=== PATIENT | female | born 1950 | race Caucasian/White ===

== ENCOUNTER 2016-09-12 10:00 | Inpatient (IN) ==
--- NOTE | 2016-09-11 22:19 | Discharge Summary ---
<OchoaJuan Pablo - Last Filed: 09/12/16 13:24> Date of Encounter: 09/12/16 - Discharge Diagnosis (1) Rotator cuff tear arthropathy of right shoulder Priority: Primary Status: Acute (2) AUSTIN (obstructive sleep apnea) Priority: Secondary Status: Chronic (3) Anxiety Priority: Secondary Status: Chronic (4) Gout Priority: Secondary Status: Chronic Qualifiers: Gout site: unspecified site Gout etiology: unspecified cause Chronicity: unspecified Qualified Code(s): M10.9 - Gout, unspecified (5) HLD (hyperlipidemia) Priority: Secondary Status: Chronic Qualifiers: Hyperlipidemia type: unspecified Qualified Code(s): E78.5 - Hyperlipidemia , unspecified (6) HTN (hypertension) Priority: Secondary Status: Chronic Qualifiers: Hypertension type: essential hypertension Qualified Code(s): I10 - Essential (primary) hypertension (7) Obesity Priority: Secondary Status: Chronic Qualifiers: Obesity type: unspecified obesity type Obesity severity: unspecified obesity severity Qualified Code(s): E66.9 - Obesity, unspecified (8) CKD (chronic kidney disease) Priority: Secondary Status: Chronic Qualifiers: Chronic kidney disease stage: stage 2 (mild) Qualified Code(s): - (9) Paroxysmal a-fib Priority: Secondary Status: Chronic - Discharge Medications Home Medications: Allopurinol [Zyloprim 100 MG] 100 mg PO BID 09/12/16 [History] Aspirin [Lo-Dose Aspirin EC] 81 mg PO DAILY 09/12/16 [History] Flecainide 50 mg PO Q12HR 09/12/16 [History] Metoprolol Succinate 100 mg PO DAILY 09/12/16 [History] OxyCODONE Immed Rel [Roxicodone 5 MG] 5 - 10 mg PO Q6HR PRN #40 tablet 09/12/16 [Rx] Paroxetine HCl [Paxil] 20 mg PO DAILY 09/12/16 [History] Simvastatin [Zocor] 40 mg PO HS 09/12/16 [History] Allergies/Adverse Reactions: Allergies No Known Allergies Allergy (Verified 09/12/16 10:51) Primary care physician: Lewis Lazaro Jr, MD - Patient Status Disposition: Home, Self-Care Condition: Good - Discharge Instructions Follow Up With: Kylee Gustafson PAC [Physician Wallpaper Printer Helper] - 09/22/16 1:30 pm Lewis Lazaro Jr, MD [Primary Care Provider] - Additional Instructions: Discharge Instructions: Total Shoulder Please call [facility] ([phone]), your Primary Care Physician, or report to the Emergency Room if you have any of the following symptoms: Nausea, vomiting, fever greater that 101.5, swelling, chest pain, shortness of breath, increased pain/redness/drainage/odor for your incision site, numbness/ tingling, or any other concerning symptoms. ACTIVITY: Always keep your arm in the sling. Do not raise your arm away from your body. Do not use your arm to help with getting in or out of bed. No weight bearing permitted. Only perform those exercises given to you by your therapist. MEDICATIONS: Upon discharge resume your home medications. Take all the medications as prescribed. Take a stool softener if taking narcotic pain medications. Stool softeners are only effective if you drink enough fluids. Drink 6-8 glass of water or fluids a day, unless this is not allowed for another health problem. Despite using stool softeners, if you haven't had a bowel movement in 3 days, please switch to a gentle laxative. Gentle laxatives are sold over the counter. You should have a bowel movement within 24 hours, if not call the office. You will be discharged from the hospital with a prescription for pain medication. You are encouraged to decrease the use of narcotic pain medication as tolerated. Should you require a refill, please call the office. [facility] prescribes narcotic pain medication for only 4-6 weeks after surgery. If you require pain medication beyond this time period, you may be referred to your Primary Care Physician or to the Pain Clinic for further evaluation. Plan ahead for refills on pain medication as many narcotics either need to be picked up at the office or mailed. It is best to call 48-72 hours in advance of needing a prescription refill so you don't run out of medication. To help control the post-operative pain, you may take NSAIDs (Aleve,Advil, Motrin, Ibuprofen, Naprosyn) or Tylenol as prescribed on the bottle in addition to the pain medication. WOUND CARE: Leave the dressing on for 7-10 days. You may change the dressing if it becomes saturated greater than 50%. Do not get the dressing wet at anytime. Wash your hands with antibacterial soap, rinse and dry prior to any wound care. If you have andrés the visiting nurse or rehab facility can remove the stapes 10-14 days after surgery and place steri-strips across the wound. Leave the steri-strips in place until they fall off on their own. You may let water from the shower run on top of the steri-strips. If you do not have a visiting nurse or rehab facility, you will need to return to the office at 10-14 days for the andrés to be removed. If you have itching or redness around the dressing call the office. FOLLOW-UP: Please follow up with your surgeon in the orthopedic clinic, as scheduled - Hospital Course Hospital course: Ms. Ortega is a 66 year old female - Time Spent with Patient Total time spent providing and/or coordinating discharge services: <Kylee Gustafson - Last Filed: 09/16/16 12:42> Date of Encounter: 09/16/16 Time of Encounter: 16:00 - Discharge Diagnosis (1) Rotator cuff tear arthropathy of right shoulder Priority: Primary Status: Acute (2) AUSTIN (obstructive sleep apnea) Priority: Secondary Status: Chronic (3) Anxiety Priority: Secondary Status: Chronic (4) Gout Priority: Secondary Status: Chronic Qualifiers: Gout site: unspecified site Gout etiology: unspecified cause Chronicity: unspecified Qualified Code(s): M10.9 - Gout, unspecified (5) HLD (hyperlipidemia) Priority: Secondary Status: Chronic Qualifiers: Hyperlipidemia type: unspecified Qualified Code(s): E78.5 - Hyperlipidemia , unspecified (6) HTN (hypertension) Priority: Secondary Status: Chronic Qualifiers: Hypertension type: essential hypertension Qualified Code(s): I10 - Essential (primary) hypertension (7) Obesity Priority: Secondary Status: Chronic Qualifiers: Obesity type: unspecified obesity type Obesity severity: unspecified obesity severity Qualified Code(s): E66.9 - Obesity, unspecified (8) CKD (chronic kidney disease) Priority: Secondary Status: Chronic Qualifiers: Chronic kidney disease stage: stage 2 (mild) Qualified Code(s): N18.2 - Chronic kidney disease, stage 2 (mild) (9) Paroxysmal a-fib Priority: Secondary Status: Chronic Primary care physician: Lewis Lazaro Jr, MD - Patient Status Functional capacity at discharge: independent ambulation Overall status at discharge: patient is back to baseline - Hospital Course Hospital course: Ms. Ortega is a 66 year old female - Time Spent with Patient Total time spent providing and/or coordinating discharge services:
--- NOTE | 2016-09-12 10:43 | History & Physical Report ---
Date of Encounter: 09/12/16 Time of Encounter: 10:43 24 Hour HP Update - Instructions Instructions: If the History and Physical is less than 30 days old and was completed prior to A.M. admission and or procedure and has NOT been updated on calendar day of procedure please complete this update prior to performing procedure. - Update Patient reports changes in Medical Condition: No Changes in examination, assessment, or condition: No Changes in Medication: No Preop tests/diagnostics Reviewed: Yes Surgery Remains Indicated: Yes Consent for Planned Operative Procedure(s) Verified: Yes - Pre-Operative Checklist Preoperative Checklist Indicated: No Prophylactic Antibiotic Ordered: Yes Is VTE Prophylaxis Indicated?: Yes
[2016-09-12] MEDS ORDERED: CeFAZolin Pre 2,000 MG/100 ML 2,000 MG/100 ML BAG IVPB ONE (10:53)
[2016-09-12] MEDS ORDERED: Ringers Solution, Lactated 1,000 ML IVC SCH ×2 (11:00→15:13)
--- NOTE | 2016-09-12 11:22 | Anesthesia Evaluation PreOp ---
Date of Encounter: 09/12/16 Time of Encounter: 11:20 - Past History Planned Operation: r tsr Cardiac History: HTN, Hyperlipidemia Pulmonary History: AUSTIN Dx PORTABLE SAWYER History: Other (depression, anxiety) Other Medical History: Renal Anesthesia History: No Prior Anesthetic Complications, Past Anesthesia (sendy, mohs) Alcohol Use: none Drug use: none Medications and Allergies Allopurinol [Zyloprim 100 MG] 100 mg PO BID 09/12/16 [History] Aspirin [Lo-Dose Aspirin EC] 81 mg PO DAILY 09/12/16 [History] Flecainide 50 mg PO Q12HR 09/12/16 [History] Metoprolol Succinate 100 mg PO DAILY 09/12/16 [History] OxyCODONE Immed Rel [Roxicodone 5 MG] 5 - 10 mg PO Q6HR PRN #40 tablet 09/12/16 [Rx] Paroxetine HCl [Paxil] 20 mg PO DAILY 09/12/16 [History] Simvastatin [Zocor] 40 mg PO HS 09/12/16 [History] Allergies No Known Allergies Allergy (Verified 09/12/16 10:51) - Meds/Allergy Pre-op Review Medications Reviewed: Yes Allergies Reviewed: Yes Beta Blockers on Current Med List: Yes If Beta Blockers taken, Date/Time (Last Dose taken): metoprolol at 11:30 Anesthesia Results - Labs Laboratory Tests 08/25/16 08/25/16 08/25/16 14:36 14:36 14:36 Hgb 14.5 Hct 44.5 PT 11.9 INR 1.1 APTT 31.3 Sodium 139 Potassium 3.9 Creatinine 1.32 H - Imaging EKG: report reviewed (sr) Anesthesia Exam O2 Sat Height 1.57 m Height 1.57 m Height 1.57 m Weight 102.512 kg Weight 102.512 kg Weight 102.512 kg O2 Sat by Pulse Oximetry 96 O2 Sat by Pulse Oximetry 96 Vital Signs Temp Pulse Resp BP Pulse Ox 98.7 F 81 18 143/87 96 09/12/16 10:29 09/12/16 10:29 09/12/16 10:29 09/12/16 10:29 09/12/16 10:29 Height: 157 Weight: 102 NPO (# of Hours): >8 - HEENT Pupil (Motor): Pupils equal, EOMI Mallampati: IV Oral Opening: Greater than 3 (no underbite) - PORTABLE SAWYER LOC: Oriented PORTABLE SAWYER Motor: Normal RUE, Normal LUE, Normal RLE, Normal LLE, Normal Face PORTABLE SAWYER Sensory: Normal: RUE, LUE, RLE, LLE, Face - Cardiac Rhythm: Regular Murmur: None - Pulmonary Breath Sounds: bilateral Clear Respiratory Effort: Symmetrical Anesthesia Assess/Plan ASA Score: 3 (awake look with macarena for sedation, possible awake FOI for potential diff AW) Modified Anselmo Scale for Level of Consciousness: Cooperative, oriented, and tranquil Anesthetic Plan: General, Regional Monitoring Plan: Standard Monitors Recovery Plan: PACU
[2016-09-12] MEDS ORDERED: CloNIDine Patch 0.1 MG PATCH (WEEKLY) TD ONE (11:30)
[2016-09-12] MEDS ORDERED: *HR* Propofol 200 MG/20 ML VIAL IVP ONE (11:52)
[2016-09-12] MEDS ORDERED: *HR* FentaNYL (PF) 100 MCG/2 ML VIAL ONE (11:52)
[2016-09-12] MEDS ORDERED: *HR* Midazolam HCl 2 MG/2 ML VIAL ONE (11:52)
[2016-09-12] MEDS ORDERED: Lidocaine -MPF 2% 2 ML VIAL ONE (11:55)
[2016-09-12] MEDS ORDERED: Bupivacaine-MPF 0.25% 10 ML VIAL ONE (12:36)
[2016-09-12] MEDS ORDERED: ROPIVACAINE HCL/PF 0.5% 30 ML VIAL ONE (12:36)
[2016-09-12] MEDS ORDERED: Glycopyrrolate 0.2 MG/ML VIAL ONE (12:39)
[2016-09-12] MEDS ORDERED: Lidocaine OINT 35.44 GM TUBE TP ONE (12:40)
[2016-09-12] MEDS ORDERED: Lidocaine -MPF 4% 5 ML AMPUL ONE (12:41)
--- NOTE | 2016-09-12 13:06 | Anesthesia Procedures ---
Date of Encounter: 09/12/16 Time of Encounter: 13:04 Procedures: Anesthesia - Nerve Block Procedure Date: 09/12/16 Time: 13:04 Allergies/Adv Reactions: nka Surgical Procedure: right TSA Checklist: Correct Patient Identifier, Correct procedure, History checked Correct side: Right Blood Thinner: No Monitor Applied: EKG, BP, Pulse Oximetry Supplemental Oxygen via Nasal Cannula (L/min): 2 Sedation: Versed (mg): 2 Sedation: Fentanyl (mcg): 50 Indication: Post Op Analgesia Pre-op Neuro Deficits: No Block Type: Supraclavicular, Other (CP) Catheter placed: No Sterile Technique: Yes Ultrasound used: Yes Anatomy identified: Yes Visual spread of Local: Yes Neuro Stimulation: No Blood on Needle Aspiration: No Smooth Injection of Local: Yes Pain with Injection of Local: No Prep: Chlorhexadine Needle: 22 x 50 mm Stimuplex Local: Ropivacaine (30mL 0.5%), Other (10mg decadron SC, 10mL 0.25% bupivacaine CP) Volume (cc): 40 Number of Attempts: 1 Complications: None/effective block Vitals: Vital Signs/O2 Sat/Glucose, Most Recent Temp Pulse Resp BP Pulse Ox 98.7 F 69 18 159/78 100 09/12/16 11:00 09/12/16 12:57 09/12/16 12:57 09/12/16 12:57 09/12/16 12:57
[2016-09-12] MEDS ORDERED: *HR* Remifentanil 1 MG VIAL IVP ONE (13:07)
--- NOTE | 2016-09-12 14:15 | Orthopedic Operative Note ---
Date of procedure: 09/12/16 Pre-op diagnosis: Right shoulder cuff tear arthropathy Post-op diagnosis: same Procedure: Procedure: Right Total Shoulder Replacment Reverse, biceps tenodesis Estimated blood loss: 100 cc Hardware: Metal and polyethylene replacement: Arthrex medium glenoid baseplate , 2 4.5 screws. 1 6.5 screw, 39+4 glenosphere, 6 humeral stem, poly insert 3 Exam Under anesthesia: Full motion and stability Procedural Notes: Arthritic changes glenoid and humeral head. Grade 3. Irreparable tear supraspinatus Operative procedure: The patient was brought to the operating room and placed on the operating room table. After general anesthesia was administered the operative shoulder was examined. Findings were noted. The patient was placed in the modified beachchair position. All pressure points were padded appropriately. And the head was stabilized in the neutral position. The operative extremity was prepped and draped in the sterile surgical fashion. The patient received IV antibiotics prior to skin incision. A standard deltopectoral approach was made to the operative shoulder. Incision was made to the skin and subcutaneous tissue,hemo stasis was obtained with Bovie cautery. Using careful blunt dissection the cephalic vein was identified and mobilized medially. The deltopectoral interval was developed and the clavipectoral fascia was incised. The subscap was released off the lesser tuberosity and tagged with #2 FiberWire suture it was irreparable. The humerus was dislocated patient noted to have irreparable tear supraspinatus tendon, and the humeral cut was made along the anatomic neck. Patient noted to have grade 3 changes on humeral head and glenoid socket. Anterior and posterior Bankart retractors were placed to expose the glenoid. The glenoid guide was seated and the centering hole was made. It was reamed with the appropriate reamer. The medium was seated and secured with (2) 4.5 screws and one 6.5 screw. The baseplate was irrigated and dried and the 39+4 Glenosphere was seated and secured with the Abarca taper. The Abarca taper was tested and found to be secure the humerus was redislocated and prepared with the diaphyseal reamers, followed by a broaching process up to the appropriate size 6 in the patient's anatomic version. The metaphyseal reamer was then utilized. Trial reduction found the shoulder to be relocatable. Trial components were removed and drill holes were placed in the lesser tuberosity. They were filled with #5 FiberWire suture incorporating the biceps tendon. These sutures were used for a a biceps tenodesis. The appropriate 6 stem was impacted in place in the patient' s anatomic version. Trial reduction found the shoulder to be relocatable and stable with the appropriate 3 Trial component was removed and the real 3 was seated and secured the shoulder was reduced. The shoulder had excellent motion and excellent stability and no evidence of dislocation. The deep tissue was irrigated with pulse irrigation. The biceps was tenodesed. The deltopectoral interval was closed with a running #1 PDS suture, subcutaneous tissue was irrigated and closed with 0 PDS suture, the skin was closed with Dermabond. The patient was placed in a sterile dressing, abduction brace and extubated. The patient was then transferred to the recovery room in stable condition. Anesthesia: AHSAN Surgeon: Juan Pablo Ochoa Dewaterer Operator: Kylee Gustafson Condition: stable Disposition: PACU
--- NOTE | 2016-09-12 14:53 | Anesthesia Evaluation Post Op ---
Date of Encounter: 09/12/16 Time of Encounter: 14:52 - Vital Signs Vital Signs: Vital Signs/O2 Sat/Glucose, Most Recent Temp Pulse Resp BP Pulse Ox 97.0 F L 72 16 150/77 99 09/12/16 14:31 09/12/16 14:41 09/12/16 14:41 09/12/16 14:41 09/12/16 14:41 - Lungs Lungs: Clear Ascult./Percussion - Airway Airway: Non-obstructed - Cardiovascular Regular Rate - Mental Status Mental Status: Alert & Oriented, Answers Appropriately - Pain Pain Scale: 0 Pain Scale used: Numeric (1 - 10) - Nausea Vomiting Nausea Vomiting: Not Present - Hydration Hydration: NPO - Discharge PostOp Status: Transfer Patient to floor
[2016-09-12] MEDS ORDERED: Ondansetron 4 MG/2 ML VIAL IVP PRN (15:13)
[2016-09-12] MEDS ORDERED: Naloxone 0.4 MG/ML INJ IVP PRN (15:13)
[2016-09-12] MEDS ORDERED: *HR* HYDROmorphone (PF) 1 MG/ML SYRINGE IVP PRN (15:13)
[2016-09-12] MEDS ORDERED: MOM Conc 10 ML UD.LIQ PO PRN (15:13)
[2016-09-12] MEDS ORDERED: Temazepam 15 MG CAPSULE PO PRN (15:13)
[2016-09-12] MEDS ORDERED: *HR* OxyCODONE Immed Rel 5 MG TABLET PO PRN ×2 (15:13)
[2016-09-12] MEDS ORDERED: Sennosides 8.6 MG TABLET PO PRN (15:13)
[2016-09-12 15:25] LABS: Hematocrit 40.1 % (35.3-44.9); Hemoglobin 13.1 g/dL (11.5-15.4)
[2016-09-12] MEDS ORDERED: ceFAZolin 2,000 MG in D5% in Water 100 ML IVPB SCH ×2 (16:55→19:00)
[2016-09-12] MEDS ORDERED: *HR* Enoxaparin 30 MG/0.3 ML SYRINGE SQ SCH ×3 (16:56→18:00)
[2016-09-12 19:07] VITALS: BP 122/85
[2016-09-13] MEDS ORDERED: Metoprolol XL (24 HR) Succ 50 MG TAB.ER.24H PO SCH (09:00)
[2016-09-13] MEDS ORDERED: Aspirin Enteric Coated 81 MG Tablet PO SCH (09:00)
== END 2016-09-12 20:00 | disposition home or self-care (01) | DRG 483 ==
LOC: SAMDAY 10:00 → 3NENU 15:23
PROVIDERS: ADMIT Orthopaedic Surgery; ATTEND Orthopaedic Surgery

== ENCOUNTER 2017-05-01 11:49 | Inpatient (IN) ==
--- NOTE | 2017-04-30 22:18 | Discharge Summary ---
<Kavita Eason E - Last Filed: 04/30/17 22:16> Date of Encounter: 04/30/17 - Discharge Diagnosis (1) Osteoarthritis of left knee Priority: Primary Status: Chronic Qualifiers: Osteoarthritis type: unspecified Qualified Code(s): M17.12 - Unilateral primary osteoarthritis, left knee (2) Paroxysmal atrial fibrillation Priority: Secondary Status: Chronic (3) [place] on CPAP Priority: Secondary Status: Chronic (4) HTN (hypertension) Priority: Secondary Status: Chronic Qualifiers: Hypertension type: unspecified Qualified Code(s): I10 - Essential (primary ) hypertension (5) Gout Priority: Secondary Status: Chronic Qualifiers: Gout site: unspecified site Gout etiology: unspecified cause Chronicity: unspecified Qualified Code(s): M10.9 - Gout, unspecified (6) HLD (hyperlipidemia) Priority: Secondary Status: Chronic Qualifiers: Hyperlipidemia type: unspecified Qualified Code(s): E78.5 - Hyperlipidemia , unspecified (7) Obesity Priority: Secondary Status: Chronic Qualifiers: Obesity type: unspecified obesity type Obesity classification: unspecified obesity classification Serious obesity comorbidity presence: unspecified whether serious comorbidity present Qualified Code(s): E66.9 - Obesity, unspecified (8) Chronic kidney disease Priority: Secondary Status: Chronic Qualifiers: Chronic kidney disease stage: unspecified stage Qualified Code(s): N18.9 - Chronic kidney disease, unspecified (9) Status post total left knee replacement Priority: Primary Status: Acute - Discharge Medications Home Medications: Allopurinol [Zyloprim 100 MG] 100 mg PO BID 09/12/16 [History] Aspirin [Lo-Dose Aspirin EC] 81 mg PO DAILY 09/12/16 [History] Flecainide 50 mg PO Q12HR 09/12/16 [History] Metoprolol Succinate 100 mg PO DAILY 09/12/16 [History] Paroxetine HCl [Paxil] 20 mg PO DAILY 09/12/16 [History] Simvastatin [Zocor] 40 mg PO HS 09/12/16 [History] Aspirin Enteric Coated [Aspirin EC] 325 mg PO DAILY 21 Days #21 tab 04/30/17 [Rx ] OxyCODONE Immed Rel [Roxicodone 5 MG] 5 mg PO Q6HR PRN 7 Days #28 tablet [Rx] Ibuprofen [Motrin Ib] 200 mg PO Q4-6H PRN 05/01/17 [History] Allergies/Adverse Reactions: 3 Allergy/AdvReac Type Severity Reaction Status Date / Time No Known Allergies Allergy Verified 05/01/17 12:35 Primary care physician: Lewis Lazaro Jr, MD - Patient Status Disposition: Transfer Inpatient Rehab Fac Condition: Good - Discharge Instructions Follow Up With: Lewis Lazaro Jr, MD [Primary Care Provider] - - Hospital Course Hospital course: Ms. Ortega is a 66 year old female - Time Spent with Patient Total time spent providing and/or coordinating discharge services: <Juan Pablo Ochoa - Last Filed: 05/04/17 08:30> Date of Encounter: 05/04/17 Time of Encounter: 08:21 - Discharge Diagnosis (1) AUSTIN (obstructive sleep apnea) Priority: Secondary Status: Chronic (2) Anxiety Priority: Secondary Status: Chronic (3) Gout Priority: Secondary Status: Chronic Qualifiers: Gout site: unspecified site Gout etiology: unspecified cause Chronicity: unspecified Qualified Code(s): M10.9 - Gout, unspecified (4) HLD (hyperlipidemia) Priority: Secondary Status: Chronic Qualifiers: Hyperlipidemia type: unspecified Qualified Code(s): E78.5 - Hyperlipidemia , unspecified (5) HTN (hypertension) Priority: Secondary Status: Chronic Qualifiers: Hypertension type: essential hypertension Qualified Code(s): I10 - Essential (primary) hypertension (6) CKD (chronic kidney disease) Priority: Secondary Status: Chronic Qualifiers: Chronic kidney disease stage: stage 2 (mild) Qualified Code(s): N18.2 - Chronic kidney disease, stage 2 (mild) (7) Paroxysmal a-fib Priority: Secondary Status: Chronic (8) Osteoarthritis of left knee Priority: Primary Status: Chronic Qualifiers: Osteoarthritis type: unspecified Qualified Code(s): M17.12 - Unilateral primary osteoarthritis, left knee (9) [place] on CPAP Priority: Secondary Status: Chronic (10) HTN (hypertension) Priority: Secondary Status: Chronic Qualifiers: Hypertension type: unspecified Qualified Code(s): I10 - Essential (primary ) hypertension (11) Status post total left knee replacement Priority: Primary Status: Acute (12) Morbid obesity with BMI of 40.0-44.9, adult Priority: Secondary Status: Chronic Primary care physician: Lewis Lazaro Jr, MD - Patient Status Functional capacity at discharge: uses cane/walker Overall status at discharge: patient is progressing back to baseline - Hospital Course Hospital course: Ms. Ortega is a 66 year old female Status post left total knee replacement The patient had an uneventful postoperative course. They received antibiotics and physical therapy and were discharged in stable condition. There will follow -up in the office in 2 weeks. - Time Spent with Patient Total time spent providing and/or coordinating discharge services:
--- NOTE | 2017-04-30 22:21 | Physician Discharge Referral ---
Home Health/Hosp Referral Info Transfer to: Home Health Attending Provider: Dr Ochoa - Diagnosis (1) Osteoarthritis of left knee Priority: Primary Status: Chronic (2) Paroxysmal atrial fibrillation Priority: Secondary Status: Chronic (3) [place] on CPAP Priority: Secondary Status: Chronic (4) HTN (hypertension) Priority: Secondary Status: Chronic (5) Gout Priority: Secondary Status: Chronic (6) HLD (hyperlipidemia) Priority: Secondary Status: Chronic (7) Obesity Priority: Secondary Status: Chronic (8) Chronic kidney disease Priority: Secondary Status: Chronic (9) Status post total left knee replacement Priority: Primary Status: Acute - Respiratory Orders Smoking Cessation: Smoking cessation has been advised. For more information, call the [employer] Quit Line at 9-799-WPPV-NOW. - Dressing/Wound Care Site: left knee Type of Dressing/Treatments w/Frequency: Opsite placed. Keep dressing intact until first follow up appointment. If > 50% saturated, notify office, remove dressing and place appropriate dressing back in place. Leave Zipline intact. Opsite dressing is water resistant, not water- proof. OK to shower, but do not get dressing wet. - Diet/Nutrition Diet/Nutrition Orders: Regular - Activity Activity Orders: Up ad fercho, Ambulate, Chair, Walker Activity: List: Total Knee replacement Precautions x 6 weeks Apply cold therapy wrap 3-6x/day for 20 minutes at a time. Encourage ambulation throughout the day and incentive spirometer 10x/hour. Elevate affected extremity above heart as tolerated. Brace: Wear knee immobilizer at night x 2 weeks. - Services Needed Following services are medically necessary services: Nursing, Home Health Aide, Physical Therapy, Occupational Therapy - Transfer Medications Prescriptions: OxyCODONE Immed Rel [Roxicodone 5 MG] 5 mg PO Q6HR PRN 7 Days #28 tablet PRN Reason: Severe Pain Aspirin Enteric Coated [Aspirin EC] 325 mg PO DAILY 21 Days #21 tab Home Medications: Allopurinol [Zyloprim 100 MG] 100 mg PO BID 09/12/16 [History] Aspirin [Lo-Dose Aspirin EC] 81 mg PO DAILY 09/12/16 [History] Flecainide 50 mg PO Q12HR 09/12/16 [History] Metoprolol Succinate 100 mg PO DAILY 09/12/16 [History] OxyCODONE Immed Rel [Roxicodone 5 MG] 5 - 10 mg PO Q6HR PRN #40 tablet 09/12/16 [Rx] Paroxetine HCl [Paxil] 20 mg PO DAILY 09/12/16 [History] Simvastatin [Zocor] 40 mg PO HS 09/12/16 [History] Aspirin Enteric Coated [Aspirin EC] 325 mg PO DAILY 21 Days #21 tab 04/30/17 [Rx ] OxyCODONE Immed Rel [Roxicodone 5 MG] 5 mg PO Q6HR PRN 7 Days #28 tablet [Rx] Allergies/Adverse Reactions: 3 Allergy/AdvReac Type Severity Reaction Status Date / Time No Known Allergies Allergy Verified 09/12/16 10:51 Certification: Further, I certify that my clinical findings support that this patient is homebound (i.e. absences from home require considerable and taxing effort and are for medical reasons or christian services or infrequently or short duration when for other reasons) because: Homebound Reason: Post-surgery restriction and or conditions limit ability to leave home Attestation: My signature below is to certify that this patient is under my care and that I, or nurse practitioner, or a physician preschool teacher's assistant working with me, has a face-to- face encounter with this patient.
[2017-05-01] MEDS ORDERED: CeFAZolin Syr 2,000MG/20 ML 2,000 MG/20 ML SYRINGE IVPB ONE (12:07)
[2017-05-01] MEDS ORDERED: Ringers Solution, Lactated 1,000 ML IVC SCH (12:15)
[2017-05-01] MEDS ORDERED: Acetaminophen IV 1,000 MG/100 ML INFUS..BTL IVPB ONE (12:46)
--- NOTE | 2017-05-01 12:50 | Anesthesia Evaluation PreOp ---
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: Other (anxiety) Other Medical History: Denies Any Significant HX Anesthesia History: No Prior Anesthetic Complications, Past Anesthesia ( hysterectomy, MOHS, right total shoulder, biceps tenodesis) Alcohol Use: none Drug use: none Medications and Allergies Allopurinol [Zyloprim 100 MG] 100 mg PO BID 09/12/16 [History] Aspirin [Lo-Dose Aspirin EC] 81 mg PO DAILY 09/12/16 [History] Flecainide 50 mg PO Q12HR 09/12/16 [History] Metoprolol Succinate 100 mg PO DAILY 09/12/16 [History] Paroxetine HCl [Paxil] 20 mg PO DAILY 09/12/16 [History] Simvastatin [Zocor] 40 mg PO HS 09/12/16 [History] Aspirin Enteric Coated [Aspirin EC] 325 mg PO DAILY 21 Days #21 tab 04/30/17 [Rx ] OxyCODONE Immed Rel [Roxicodone 5 MG] 5 mg PO Q6HR PRN 7 Days #28 tablet [Rx] Ibuprofen [Motrin Ib] 200 mg PO Q4-6H PRN 05/01/17 [History] 3 Allergy/AdvReac Type Severity Reaction Status Date / Time No Known Allergies Allergy Verified 05/01/17 12:35 - Meds/Allergy Pre-op Review Medications Reviewed: Yes Allergies Reviewed: Yes Beta Blockers on Current Med List: Yes If Beta Blockers taken, Date/Time (Last Dose taken): 10am today Anesthesia Results - Labs Laboratory Tests 04/06/17 04/06/17 04/06/17 13:50 13:50 13:50 WBC 5.9 Hgb 15.0 Hct 46.9 H Plt Count 313 PT 11.2 INR 1.0 APTT 30.1 Sodium 137 Potassium 4.3 Chloride 102 Carbon Dioxide 27 BUN 19 Creatinine 1.22 H - Imaging EKG: report reviewed (NSR) Anesthesia Exam O2 Sat Height 1.57 m Height 1.57 m Weight 99.337 kg Weight 99.337 kg O2 Sat by Pulse Oximetry 95 Vital Signs Temp Pulse Resp BP Pulse Ox 98.7 F 69 18 126/59 95 05/01/17 12:30 05/01/17 12:30 05/01/17 12:30 05/01/17 12:30 05/01/17 12:30 Height: 1.57m Weight: 99kg NPO (# of Hours): >8 - HEENT Pupil (Motor): Pupils equal, EOMI - 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 LOC: Oriented NEEDLE 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 Motor: Normal RUE, Normal LUE, Normal RLE, Normal LLE, Normal Face NEEDLE 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 Sensory: Normal: RUE, LUE, RLE, LLE, Face - Cardiac Rhythm: Regular - Pulmonary Breath Sounds: bilateral Clear Respiratory Effort: Symmetrical Anesthesia Assess/Plan ASA Score: 3 (HTN, hyperlipidemia, [place]) Modified [place] Scale for Level of Consciousness: Cooperative, oriented, and tranquil Anesthetic Plan: General (r/b/a discussed, questions answered, consent obtained) , Regional (L adductor canal, spinal), MAC Monitoring Plan: Standard Monitors Recovery Plan: PACU
[2017-05-01] MEDS ORDERED: *HR* Propofol 200 MG/20 ML VIAL IVP ONE (12:55)
[2017-05-01] MEDS ORDERED: *HR* Midazolam HCl 2 MG/2 ML VIAL ONE (12:55)
[2017-05-01] MEDS ORDERED: Ondansetron 4 MG/2 ML VIAL ONE (13:00)
[2017-05-01] MEDS ORDERED: Dexamethasone 4 MG/ML VIAL ONE (13:00)
[2017-05-01] MEDS ORDERED: Lidocaine -MPF 2% 2 ML VIAL ONE (13:00)
--- NOTE | 2017-05-01 13:25 | History & Physical Report ---
Date of Encounter: 05/01/17 Time of Encounter: 13:25 24 Hour HP Update - Instructions Instructions: If the History and Physical is less than 30 days old and was completed prior to A.M. admission and or procedure and has NOT been updated on calendar day of procedure please complete this update prior to performing procedure. - Update Patient reports changes in Medical Condition: No Changes in examination, assessment, or condition: No Changes in Medication: No Preop tests/diagnostics Reviewed: Yes Surgery Remains Indicated: Yes Consent for Planned Operative Procedure(s) Verified: Yes - Pre-Operative Checklist Preoperative Checklist Indicated: No Prophylactic Antibiotic Ordered: Yes Is VTE Prophylaxis Indicated?: Yes
[2017-05-01] MEDS ORDERED: Bupivacaine/Clonidine Syringe 1 EACH SYRINGE ONE (14:00)
[2017-05-01] MEDS ORDERED: Ethanol\\Acetic Acid\\Na Ace\\Ben 1,000 ML IRRIG.SOLN IR ONE (14:02)
--- NOTE | 2017-05-01 14:39 | Anesthesia Procedures ---
Date of Encounter: 05/01/17 Time of Encounter: 14:45 Procedures: Anesthesia - Epidural/Spinal Patient ID/Chart reviewed: Yes Patient examined: Yes Consent Obtained: Yes Supplemental Oxygen: Nasal Cannula Supplemental Oxygen Rate (L/min): 3 Sedation: Versed (mg): 2 Site Prep: Aseptic Technique, Sterile prep and drape, Povidone-Iodine 1% Patient position: upright Local Anesthetic: Lidocaine 1% Amount of Local Anesthetic used: 3 Interspace Used: L3-L4 Blood: No CSF: Yes Paresthesia: No Spinal Needle Gauge: 25 Spinal Dose: 2.5ml 0.5% Bupi, 0.2mg duramorph Procedure: r/b/a discussed with pt, sitting position, low back prepped and draped in sterile fashion, 3ml 1% lid0 injected at L3-4, 20g introducer placed, 25g spinal needle, CSF clear, 2.5ml of 0.5% bupi + 0.2mg PF duramorph injected. Pt tolerated procedure well. Vitals + FHT's: see nursing notes
[2017-05-01] MEDS ORDERED: *HR* PHENYLEPHRINE 1,000 MCG/10 ML SYRINGE IVP ONE (15:00)
[2017-05-01] MEDS ORDERED: Propofol 500 MG/50 ML INFUS..BTL ONE (15:02)
[2017-05-01] MEDS ORDERED: *HR* Promethazine 25 MG/ML VIAL IVP PRN (15:13)
--- NOTE | 2017-05-01 15:16 | Anesthesia Procedures ---
Date of Encounter: 05/01/17 Time of Encounter: 14:30 Procedures: Anesthesia - Nerve Block Procedure Date: 05/01/17 Time: 14:38 Surgical Procedure: left robotic knee Checklist: Correct Patient Identifier, Correct procedure, History checked Correct side: Left Blood Thinner: No Monitor Applied: EKG, BP, Pulse Oximetry Supplemental Oxygen via Nasal Cannula (L/min): 2 Sedation: Versed (mg): 2 Indication: Post Op Analgesia Block Type: Other (adductor canal) Sterile Technique: Yes Ultrasound used: Yes Anatomy identified: Yes Visual spread of Local: Yes Neuro Stimulation: No Blood on Needle Aspiration: No Smooth Injection of Local: Yes Pain with Injection of Local: No Prep: Chlorhexadine Needle: 22 x 50 mm Stimuplex Local: 0.25% Bupivicaine w/Clonidine 20 mcg/cc Volume (cc): 25 Number of Attempts: 1 Complications: None/effective block Vitals: vss Comments: performed by rosemary AGRAWAL
[2017-05-01] MEDS ORDERED: EPHEDrine 50 MG/ML VIAL ONE (15:31)
--- NOTE | 2017-05-01 15:33 | Orthopedic Operative Note ---
Date of procedure: 05/01/17 Pre-op diagnosis: Left knee arthritis Post-op diagnosis: same Procedure: Procedure: Left robotic-assisted Total knee replacement Estimated blood loss: 200 cc Hardware: Metal and polyethylene replacement. [place] Femur: 3 Tibia: 3 TS insert: 11 Patella: 36 Exam Under anesthesia: Loss of full extension and 1 degree 5 degrees varus as calculated by the robot full flexion and no instability Procedural Notes: Grade 3 arthritic changes undersurface of patella medial compartment. Operative procedure: The patient was brought to the operating room and placed on the operating room table. After general anesthesia was administered the operative knee was examined. Findings were noted in the exam under anesthesia. The operative extremity was prepped and draped in sterile surgical fashion. The patient received IV antibiotics prior to skin incision. A standard midline incision was made centered over the patella. The incision was made through the skin and subcutaneous tissue. A medial parapatellar tendon approach was performed. Care was taken to preserve tissue along the medial aspect of the patella. And to protect the patella tendon. The deep MCL was released off the medial tibia. The infra patella fat pad was excised. The patella was everted and cut was made at the level of the insertion of the quadriceps and patella tendon. The patella was sized to a 36 the guide was seated and the lug holes are drilled. Knee was brought into flexion. Patient noted to have grade 3 arthritic changes undersurface of patella and medial femoral condyle. Steinmann pins were placed in the tibia and the femur for the tibial and femoral arrays respectively. Checkpoints were also placed in the tibia and the femur for calculation purposes. The knee including the femur and the tibial registered. Osteophytes , ACL and PCL were excised at this point. Extension and flexion were assessed with a valgus stress components were adjusted on the computer to balance the knee. Femoral cuts were made first with robotic assistance, these included the anterior cut posterior cuts chamfer cuts. Tibial cut was then performed with robotic assistance as well. Bone fragments were removed, as well as the medial and lateral meniscus. The size 3 femoral guide was seated box cut was made lug holes are drilled. The size 3 tibial tray was seated and prepared with the fin cutter. Trial reduction with the 11 TS Emily revealed extension of 0 degree varus 3 degrees and full flexion. No varus valgus instability. Trial reduction revealed excellent patella tracking. All trial components were removed all bony surfaces were irrigated. The Tibia was seated followed by the femur, The Emily size 11 was seated and secured patella. Patient had similar findings for motion and stability. The knee was closed by the PA. The knee was then irrigated out with 2 L of pulse irrigation. The extensor mechanism was closed with #2 FiberWire suture and #2 PDS suture. The subcutaneous tissue was then irrigated and closed deep with #1 PDS suture superficially with 0 PDS suture and skin was closed with zip tie The patient was then placed in a sterile dressing and a postoperative brace extubated and transferred to recovery room in stable condition. Anesthesia: spinal Surgeon: Juan Pablo Ochoa Was there an per diem physical therapist assistant present: No Estimated blood loss (cc): 200 Condition: stable Disposition: PACU
[2017-05-01 16:53] LABS: Hematocrit 37.5 % (35.3-44.9); Hemoglobin 11.7 g/dL (11.5-15.4)
[2017-05-01] MEDS ORDERED: CeFAZolin Premix DUPLEX 2,000 MG/50 ML BAG IVPB SCH (17:25)
[2017-05-01] MEDS ORDERED: Naloxone 0.4 MG/ML INJ IVP PRN (17:25)
[2017-05-01] MEDS ORDERED: Ibuprofen 200 MG TABLET PO PRN (17:25)
[2017-05-01] MEDS ORDERED: Sennosides 8.6 MG TABLET PO PRN (17:25)
[2017-05-01] MEDS ORDERED: Temazepam 15 MG CAPSULE PO PRN (17:25)
[2017-05-01] MEDS ORDERED: MOM Conc 10 ML UD.LIQ PO PRN (17:25)
--- NOTE | 2017-05-01 17:28 | Anesthesia Evaluation Post Op ---
Date of Encounter: 05/01/17 Time of Encounter: 17:25 - Vital Signs Vital Signs: Selected Entries 05/01/17 17:11 05/01/17 17:21 Temperature 97.0 F L Pulse Rate 63 Respiratory Rate 14 Blood Pressure 89/49 O2 Sat by Pulse Oximetry 92 - Lungs Lungs: Clear Ascult./Percussion - Airway Airway: Non-obstructed - Cardiovascular Regular Rate (Patient has been borderline hypotensive while in PACU. Patient received two fluid boluses. She is asymptomatic, awake, talking and laughing. Ready to go to floor to see family.) - Mental Status Mental Status: Alert & Oriented, Answers Appropriately - Nausea Vomiting Nausea Vomiting: Not Present - Hydration Hydration: NPO
[2017-05-01] MEDS ORDERED: *HR* Enoxaparin 30 MG/0.3 ML SYRINGE SQ SCH (18:00)
[2017-05-01] MEDS: *HR* Enoxaparin 30 MG/0.3 ML SYRINGE SQ SCH (20:15)
[2017-05-01] MEDS: Ondansetron 4 MG/2 ML VIAL IVP PRN (21:32)
[2017-05-01] MEDS: CeFAZolin Premix DUPLEX 2,000 MG/50 ML BAG IVPB SCH (23:05)
[2017-05-02] MEDS: *HR* OxyCODONE Immed Rel 5 MG TABLET PO PRN ×5 (01:09→21:04)
[2017-05-02] MEDS: CeFAZolin Premix DUPLEX 2,000 MG/50 ML BAG IVPB SCH (05:51)
[2017-05-02] MEDS: *HR* Enoxaparin 30 MG/0.3 ML SYRINGE SQ SCH ×2 (05:51→17:31)
--- NOTE | 2017-05-02 06:16 | Orthopedics Progress Note ---
Date of Encounter: 05/02/17 Time of Encounter: 06:15 - Assessment and Plan (1) [place] (obstructive sleep apnea) Current Visit: No Status: Chronic (2) Anxiety Current Visit: No Status: Chronic (3) Gout Current Visit: No Status: Chronic Qualifiers: Gout site: unspecified site Gout etiology: unspecified cause Chronicity: unspecified Qualified Code(s): M10.9 - Gout, unspecified (4) HLD (hyperlipidemia) Current Visit: No Status: Chronic Qualifiers: Hyperlipidemia type: unspecified Qualified Code(s): E78.5 - Hyperlipidemia , unspecified (5) HTN (hypertension) Current Visit: No Status: Chronic Qualifiers: Hypertension type: essential hypertension Qualified Code(s): I10 - Essential (primary) hypertension (6) CKD (chronic kidney disease) Current Visit: No Status: Chronic Qualifiers: Chronic kidney disease stage: stage 2 (mild) Qualified Code(s): N18.2 - Chronic kidney disease, stage 2 (mild) (7) Paroxysmal a-fib Current Visit: No Status: Chronic (8) Osteoarthritis of left knee Current Visit: No Status: Chronic Qualifiers: Osteoarthritis type: unspecified Qualified Code(s): M17.12 - Unilateral primary osteoarthritis, left knee (9) [place] on CPAP Current Visit: No Status: Chronic (10) HTN (hypertension) Current Visit: No Status: Chronic Qualifiers: Hypertension type: unspecified Qualified Code(s): I10 - Essential (primary ) hypertension (11) Status post total left knee replacement Current Visit: No Status: Acute (12) Morbid obesity with BMI of 40.0-44.9, adult Current Visit: Yes Status: Chronic Subjective Interval history: Patient was seen this morning doing well without complaints. Afebrile vital signs stable. Operative extremity: Neurovascularly intact Dressing clean dry and intact Calves nontender Assessment and plan: Continue with postoperative care Hematocrit 37 Objective Vital signs: Vital Signs Temp Pulse Resp BP Pulse Ox 05/02/17 03:38 98.1 F 86 17 117/78 97 05/02/17 00:27 97.6 F 73 18 110/63 95 05/01/17 21:21 97.4 F L 66 16 94/52 94 05/01/17 21:00 97.5 F L 05/01/17 20:29 95.6 F L 05/01/17 20:04 62 15 101/55 91 05/01/17 19:02 97.6 F 67 12 90/53 93 05/01/17 18:32 97.6 F 68 16 95/37 91 05/01/17 18:02 97.6 F 63 16 93/57 97 05/01/17 17:41 97.4 F L 63 14 94/51 96 05/01/17 17:31 62 13 90/49 95 05/01/17 17:21 65 14 89/49 92 05/01/17 17:11 97.0 F L 63 18 81/41 95 05/01/17 17:01 64 15 76/50 94 05/01/17 16:51 65 12 74/40 97 05/01/17 16:41 97.0 F L 65 12 75/40 97 05/01/17 16:31 64 12 83/43 96 05/01/17 16:21 67 12 77/44 96 05/01/17 16:11 97.4 F L 74 14 80/36 95 05/01/17 14:33 75 16 96/48 99 05/01/17 14:30 75 16 99/47 98 05/01/17 14:27 76 18 90/50 97 05/01/17 14:20 75 18 122/61 98 05/01/17 14:15 75 18 135/75 98 05/01/17 12:30 98.7 F 69 18 126/59 95 Intake and Output 05/01/17 05/01/17 05/02/17 15:59 23:59 07:59 Intake Total 50 / 50 Output Total 250 / 250 Balance -250 / -250 50 / 50 Intake: IV Fluids 50 / 50 Ancef Premix DUPLEX 2,000 mg In 50 / 50 50 ml @ 100 mls/hr IVPB Q8H IVELISSE Rx#:[id number] Output: Urine 0 / 0 Estimated Blood Loss 250 / 250 Other: # Voids 1 Weight 99.337 kg 105.9 kg Patient Weight 05/02/17 23:59 Weight 105.9 kg - Labs CBC & BMP: 05/01/17 16:26 - VTE Documentation of Mechanical Device: Venous foot pump, device Consult Discharge Plan - Plan Referrals: Lewis Lazaro Jr, MD [Primary Care Provider] -
[2017-05-02 07:50] LABS: Hemoglobin 12.2 g/dL (11.5-15.4)
[2017-05-02] MEDS: Ondansetron 4 MG/2 ML VIAL IVP PRN (08:05)
[2017-05-02 08:50] LABS: Calcium 8.7 mg/dL (8.6-10.3); Potassium 5.1 mEq/L (3.5-5.1)
[2017-05-02] MEDS: Metoprolol XL (24 HR) Succ 50 MG TAB.ER.24H PO SCH (09:32)
[2017-05-02] MEDS: Ringers Solution, Lactated 1,000 ML IVC SCH ×2 (09:33→21:05)
[2017-05-02] MEDS: Aspirin Enteric Coated 81 MG Tablet PO SCH (09:33)
--- NOTE | 2017-05-02 17:25 | Event Note ---
Date of Encounter: 05/02/17 Time of Encounter: 12:05 PCR- POD#1 Left TKR robot Don 05/01/17 PCR - Patient seen at bedside. Pain control: Adequate. Adding Lidoderm for local relief. Participating in PT. All questions and concerns addressed. Educated on use of incentive spirometer, ambulation, and hydration. Patient educated on post-operative restrictions and care. Addressed: Emesis this morning appeared to nursing as coffee ground emesis. Patient placed on clears and all NSAIDs held. Hyperglycemia on labwork - patient denies h/o DM - will do finger stick occasionally through the day to see if trending below 150. If continues to be upwards of 200, will check A1c. D/C plan: HH - PT recommending ECF - will complete continuity in case needed.
--- NOTE | 2017-05-02 17:28 | Physician Discharge Referral ---
ExtendedCare Referral Info Transfer To: [facility] Provider in Charge: Dr Ochoa - Diagnosis (1) Osteoarthritis of left knee Priority: Primary Status: Chronic (2) Paroxysmal atrial fibrillation Priority: Secondary Status: Chronic (3) [place] on CPAP Priority: Secondary Status: Chronic (4) HTN (hypertension) Priority: Secondary Status: Chronic (5) Gout Priority: Secondary Status: Chronic (6) HLD (hyperlipidemia) Priority: Secondary Status: Chronic (7) Obesity Priority: Secondary Status: Chronic (8) Chronic kidney disease Priority: Secondary Status: Chronic (9) Status post total left knee replacement Priority: Primary Status: Acute Expected Duration of Placement: less than 30 days Prognosis: Good Aware of Diagnosis: Patient Aware of Prognosis: Patient - Transfer Medications Home Medications: Allopurinol [Zyloprim 100 MG] 100 mg PO BID 09/12/16 [History] Aspirin [Lo-Dose Aspirin EC] 81 mg PO DAILY 09/12/16 [History] Flecainide 50 mg PO Q12HR 09/12/16 [History] Metoprolol Succinate 100 mg PO DAILY 09/12/16 [History] Paroxetine HCl [Paxil] 20 mg PO DAILY 09/12/16 [History] Simvastatin [Zocor] 40 mg PO HS 09/12/16 [History] Aspirin Enteric Coated [Aspirin EC] 325 mg PO DAILY 21 Days #21 tab 04/30/17 [Rx ] OxyCODONE Immed Rel [Roxicodone 5 MG] 5 mg PO Q6HR PRN 7 Days #28 tablet [Rx] Ibuprofen [Motrin Ib] 200 mg PO Q4-6H PRN 05/01/17 [History] Allergies/Adverse Reactions: 3 Allergy/AdvReac Type Severity Reaction Status Date / Time No Known Allergies Allergy Verified 05/01/17 12:35 - Respiratory Orders Smoking Cessation: Smoking cessation has been advised. For more information, call the [place] Tobacco Quit Line at 2-497-WWAO-NOW. - Ancillary Orders May use pressure relief devices daily prn, May go on LYNETTE w/family/respon constitution party w /meds at nurse discretion PRN, May consult with Dentist, Sheet Sewer, Construction Engineering Manager PRN - Mobility Orders Chair, Ambulate - Rehabiliation Orders Rehab Potential: Good Rehab Orders: Evaluation for Physical Therapy, Evaluation for Occupational Therapy Other: Total Knee replacement Precautions x 6 weeks Apply cold therapy wrap 3-6x/day for 20 minutes at a time. Encourage ambulation throughout the day and incentive spirometer 10x/hour. Elevate affected extremity above heart as tolerated. Brace: Wear knee immobilizer at night x 2 weeks. - Treatments Skin tear care topically daily PRN per policy List/Other: Opsite placed. Keep dressing intact until first follow up appointment. If > 50% saturated, notify office, remove dressing and place appropriate dressing back in place. Leave Zipline intact. Opsite dressing is water resistant, not water- proof. OK to shower, but do not get dressing wet. CERTIFICATION: I certify that the transfer of the above named patient to an Extended Care Facility is necessary for the continuing treatment of the diagnosis listed. The above information is true and accurate reflection of patient's current condition. Confidential - Redisclosure prohibited without a patient's written consent.
[2017-05-03] MEDS: *HR* OxyCODONE Immed Rel 5 MG TABLET PO PRN ×4 (00:30→18:24)
[2017-05-03] MEDS: *HR* Enoxaparin 30 MG/0.3 ML SYRINGE SQ SCH ×2 (05:32→17:19)
[2017-05-03 05:35] LABS: Hematocrit 31.6 % (35.3-44.9)
--- NOTE | 2017-05-03 05:53 | Orthopedics Progress Note ---
Date of Encounter: 05/03/17 Time of Encounter: 05:53 - Assessment and Plan (1) [place] (obstructive sleep apnea) Current Visit: No Status: Chronic (2) Anxiety Current Visit: No Status: Chronic (3) Gout Current Visit: No Status: Chronic Qualifiers: Gout site: unspecified site Gout etiology: unspecified cause Chronicity: unspecified Qualified Code(s): M10.9 - Gout, unspecified (4) HLD (hyperlipidemia) Current Visit: No Status: Chronic Qualifiers: Hyperlipidemia type: unspecified Qualified Code(s): E78.5 - Hyperlipidemia , unspecified (5) HTN (hypertension) Current Visit: No Status: Chronic Qualifiers: Hypertension type: essential hypertension Qualified Code(s): I10 - Essential (primary) hypertension (6) CKD (chronic kidney disease) Current Visit: No Status: Chronic Qualifiers: Chronic kidney disease stage: stage 2 (mild) Qualified Code(s): N18.2 - Chronic kidney disease, stage 2 (mild) (7) Paroxysmal a-fib Current Visit: No Status: Chronic (8) Osteoarthritis of left knee Current Visit: No Status: Chronic Qualifiers: Osteoarthritis type: unspecified Qualified Code(s): M17.12 - Unilateral primary osteoarthritis, left knee (9) [place] on CPAP Current Visit: No Status: Chronic (10) HTN (hypertension) Current Visit: No Status: Chronic Qualifiers: Hypertension type: unspecified Qualified Code(s): I10 - Essential (primary ) hypertension (11) Status post total left knee replacement Current Visit: No Status: Acute (12) Morbid obesity with BMI of 40.0-44.9, adult Current Visit: Yes Status: Chronic Subjective Interval history: Patient was seen this morning doing well without complaints. Afebrile vital signs stable. Operative extremity: Neurovascularly intact Dressing clean dry and intact Calves nontender Assessment and plan: Continue with postoperative care Hematocrit 30 Objective Vital signs: Vital Signs Temp Pulse Resp BP Pulse Ox 05/03/17 04:33 100.0 F H 82 18 122/68 93 05/03/17 00:16 99.1 F 81 16 101/63 93 05/02/17 20:03 98.7 F 78 16 132/80 99 05/02/17 17:27 68 151/70 05/02/17 15:30 98.5 F 74 18 94/57 94 05/02/17 11:09 98.0 F 74 20 100/64 98 05/02/17 08:09 97 05/02/17 06:29 98.0 F 86 20 115/65 95 Intake and Output 05/02/17 05/02/17 05/03/17 15:59 23:59 07:59 Intake Total 1000 / 1000 500 / 500 Output Total 300 / 300 300 / 300 550 / 550 Balance -300 / -300 700 / 700 -50 / -50 Intake: IV Fluids 1000 / 1000 Lactated Ringers 1,000 ML @ 75 1000 / 1000 mls/hr IVC .[id number] IVELISSE Rx#: [id number] Oral 500 / 500 Output: Urine 300 / 300 550 / 550 Emesis 300 / 300 Other: Weight 104 kg Blood Glucose* 131 Patient Weight 05/03/17 23:59 Weight 104 kg - Labs CBC & BMP: 05/03/17 05:22 05/02/17 06:23 Labs: Abnormal lab results Hgb 10.0 g/dL (11.5-15.4) L D 05/03/17 05:22 Hct 31.6 % (35.3-44.9) L 05/03/17 05:22 BUN 24 mg/dL (8-23) H 05/02/17 06:23 Creatinine 1.74 mg/dL (0.60-1.20) H 05/02/17 06:23 Est GFR ( Amer) 35 (> 60) L 05/02/17 06:23 Est GFR (Non-Af Amer) 29 (> 60) L 05/02/17 06:23 Glucose 191 mg/dL (70-105) H 05/02/17 06:23 POC Glucose 131 (58-89) H 05/02/17 20:18 - VTE Documentation of Mechanical Device: Venous foot pump, device Consult Discharge Plan - Plan Referrals: Lewis Lazaro Jr, MD [Primary Care Provider] -
[2017-05-03 06:03] LABS: Potassium 3.9 mEq/L (3.5-5.1)
[2017-05-03] MEDS: Aspirin Enteric Coated 81 MG Tablet PO SCH (09:12)
[2017-05-03] MEDS: Metoprolol XL (24 HR) Succ 50 MG TAB.ER.24H PO SCH (09:12)
--- NOTE | 2017-05-03 16:32 | Event Note ---
Date of Encounter: 05/03/17 Time of Encounter: 12:30 PCR- POD#2 Left TKR robot Don 05/01/17 PCR - Patient seen at bedside. Pain control: Adequate. Adding Lidoderm for local relief. Participating in PT. All questions and concerns addressed. Educated on use of incentive spirometer, ambulation, and hydration. Patient educated on post-operative restrictions and care. Addressed: nausea/vomiting resolved, she is feeling much better. advance diet as tolerated. D/C plan: [facility] herring likely tomorrow
[2017-05-04] MEDS: *HR* Enoxaparin 30 MG/0.3 ML SYRINGE SQ SCH (06:59)
--- NOTE | 2017-05-04 08:31 | Orthopedics Progress Note ---
Date of Encounter: 05/04/17 Time of Encounter: 08:31 - Assessment and Plan (1) [place] (obstructive sleep apnea) Current Visit: No Status: Chronic (2) Anxiety Current Visit: No Status: Chronic (3) Gout Current Visit: No Status: Chronic Qualifiers: Gout site: unspecified site Gout etiology: unspecified cause Chronicity: unspecified Qualified Code(s): M10.9 - Gout, unspecified (4) HLD (hyperlipidemia) Current Visit: No Status: Chronic Qualifiers: Hyperlipidemia type: unspecified Qualified Code(s): E78.5 - Hyperlipidemia , unspecified (5) HTN (hypertension) Current Visit: No Status: Chronic Qualifiers: Hypertension type: essential hypertension Qualified Code(s): I10 - Essential (primary) hypertension (6) CKD (chronic kidney disease) Current Visit: No Status: Chronic Qualifiers: Chronic kidney disease stage: stage 2 (mild) Qualified Code(s): N18.2 - Chronic kidney disease, stage 2 (mild) (7) Paroxysmal a-fib Current Visit: No Status: Chronic (8) Osteoarthritis of left knee Current Visit: No Status: Chronic Qualifiers: Osteoarthritis type: unspecified Qualified Code(s): M17.12 - Unilateral primary osteoarthritis, left knee (9) [place] on CPAP Current Visit: No Status: Chronic (10) HTN (hypertension) Current Visit: No Status: Chronic Qualifiers: Hypertension type: unspecified Qualified Code(s): I10 - Essential (primary ) hypertension (11) Status post total left knee replacement Current Visit: No Status: Acute (12) Morbid obesity with BMI of 40.0-44.9, adult Current Visit: Yes Status: Chronic Subjective Interval history: Patient was seen this morning doing well without complaints. Afebrile vital signs stable. Operative extremity: Neurovascularly intact Dressing clean dry and intact Calves nontender Assessment and plan: Continue with postoperative care Discharge today Objective Vital signs: Vital Signs Temp Pulse Resp BP Pulse Ox 05/04/17 03:54 99.0 F 84 18 135/75 95 05/04/17 00:12 99.3 F 88 18 138/74 95 05/03/17 20:59 99.5 F 83 18 131/77 99 05/03/17 14:25 98.6 F 83 18 115/70 94 05/03/17 11:20 99.2 F 80 18 114/66 94 Intake and Output 05/03/17 05/04/17 05/04/17 23:59 07:59 15:59 Intake Total 350 / 350 100 / 100 Output Total 1300 / 1300 400 / 400 Balance -950 / -950 -300 / -300 Intake: IV Fluids 50 / 50 Oral 300 / 300 100 / 100 Output: Urine 1300 / 1300 400 / 400 Other: Weight 107.3 kg Blood Glucose* 132 Patient Weight 05/04/17 23:59 Weight 107.3 kg - Labs CBC & BMP: 05/03/17 05:22 05/03/17 05:22 Labs: Abnormal lab results Hgb 10.0 g/dL (11.5-15.4) L D 05/03/17 05:22 Hct 31.6 % (35.3-44.9) L 05/03/17 05:22 Sodium 134 mEq/L (136-145) L 05/03/17 05:22 Est GFR ( Amer) 56 (> 60) L 05/03/17 05:22 Est GFR (Non-Af Amer) 47 (> 60) L 05/03/17 05:22 Glucose 118 mg/dL (70-105) H 05/03/17 05:22 POC Glucose 97 (58-89) H 05/04/17 07:26 Calcium 8.0 mg/dL (8.6-10.3) L 05/03/17 05:22 - VTE Documentation of Mechanical Device: Venous foot pump, device Consult Discharge Plan - Plan Referrals: Lewis Lazaro Jr, MD [Primary Care Provider] -
[2017-05-04 10:01] VITALS: BP 117/73
[2017-05-04] MEDS: Metoprolol XL (24 HR) Succ 50 MG TAB.ER.24H PO SCH (10:15)
[2017-05-04] MEDS: *HR* OxyCODONE Immed Rel 5 MG TABLET PO PRN (10:15)
[2017-05-04] MEDS: Aspirin Enteric Coated 81 MG Tablet PO SCH (10:15)
== END 2017-05-04 13:00 | DRG 470 ==
LOC: SAMDAY 11:49 → 3NENU 17:07
PROVIDERS: ADMIT Orthopaedic Surgery; ATTEND Orthopaedic Surgery

== ENCOUNTER 2019-03-30 18:05 | Inpatient (IN) ==
[2019-03-30] MEDS ORDERED: Aspirin 81 MG TAB.CHEW PO ONE (18:22)
[2019-03-30 18:35] LABS: Basophils # 0.1 K/mcL (0.0-0.2); Basophils % 0.6 %; Eosinophils # 0.3 K/mcL (0.0-0.6); Hemoglobin 15.2 g/dL (11.5-15.4); Immature Granulocytes % 0.5 % (0-4); Lymphocytes # 2.6 K/mcL (0.6-4.6); Mean Corpuscular HGB Conc 33.8 g/dL (31.6-35.5); Mean Corpuscular Hemoglobin 29.6 pg (28.0-33.3); Mean Corpuscular Volume 87.5 fL (83.0-100.0); Mean Platelet Volume 9.4 fL (9.4-12.4); Monocytes # 0.6 K/mcL (0.0-1.3); Monocytes % 6.1 %; Neutrophils # 6.3 K/mcL (1.6-8.9); Platelet Count 308 K/mcL (140-400); Red Blood Count 5.14 M/mcL (3.82-4.97); Red Cell Distribution Width 14.1 % (11.5-14.5); Segmented Neutrophils % 63.8 %; White Blood Count 9.9 K/mcL (4.3-11.1)
[2019-03-30 18:40] LABS: Prothrombin Time 11.8 Seconds (9.4-12.1)
[2019-03-30 18:55] LABS: BUN/Creatinine Ratio 17 (6-26); Blood Urea Nitrogen 18 mg/dL (8-23); Carbon Dioxide 25 mEq/L (23-29); Chloride 99 mEq/L (98-107); Glucose 178 mg/dL (70-105); Osmolality,Calculated 290 (280-300); Potassium 3.9 mEq/L (3.5-5.1); Sodium 137 mEq/L (136-145); Troponin I < 0.03 ng/mL (< 0.04); eGFR For African Americans > 60 (> 60); eGFR For Non-African Americans 50 (> 60)
[2019-03-30] MEDS ORDERED: Acetaminophen 325 MG TABLET PO PRN (22:09)
[2019-03-30] MEDS ORDERED: *HR* Promethazine 25 MG/ML VIAL IVP PRN (22:09)
[2019-03-30] MEDS ORDERED: Naloxone 0.4 MG/ML INJ IVP PRN (22:09)
[2019-03-30] MEDS ORDERED: Nitroglycerin 0.4 MG TAB.SUBL SL PRN (22:12)
[2019-03-30] MEDS ORDERED: Morphine Sulfate 2 MG/ML SYRINGE IVP PRN (22:13)
[2019-03-30] MEDS ORDERED: Mag Hydrox/Al Hydrox/Simeth 30 ML UDC PO PRN (23:28)
[2019-03-30 23:30] LABS: Basophils # 0.1 K/mcL (0.0-0.2); Basophils % 0.5 %; Eosinophils # 0.2 K/mcL (0.0-0.6); Eosinophils % 2.1 %; Hematocrit 43.5 % (35.3-44.9); Hemoglobin 14.6 g/dL (11.5-15.4); Immature Granulocytes % 0.5 % (0-4); Lymphocytes % 19.6 %; Mean Corpuscular HGB Conc 33.6 g/dL (31.6-35.5); Mean Corpuscular Hemoglobin 29.6 pg (28.0-33.3); Mean Corpuscular Volume 88.1 fL (83.0-100.0); Mean Platelet Volume 9.7 fL (9.4-12.4); Monocytes # 0.6 K/mcL (0.0-1.3); Monocytes % 6.3 %; Neutrophils # 7.2 K/mcL (1.6-8.9); Platelet Count 280 K/mcL (140-400); Red Blood Count 4.94 M/mcL (3.82-4.97); Red Cell Distribution Width 14.3 % (11.5-14.5); White Blood Count 10.2 K/mcL (4.3-11.1)
[2019-03-31] MEDS ORDERED: *HR* Heparin 5,000 UNIT/ML VIAL IVP PRN ×2 (00:27)
[2019-03-31] MEDS ORDERED: *HR* Heparin 5,000 UNIT/ML VIAL IVP ONE (00:27)
[2019-03-31 01:32] LABS: Hematocrit 42.2 % (35.3-44.9); Hemoglobin 14.3 g/dL (11.5-15.4); Mean Corpuscular HGB Conc 33.9 g/dL (31.6-35.5); Mean Corpuscular Hemoglobin 29.8 pg (28.0-33.3); Mean Corpuscular Volume 87.9 fL (83.0-100.0); Mean Platelet Volume 9.8 fL (9.4-12.4); Platelet Count 267 K/mcL (140-400); Red Cell Distribution Width 14.2 % (11.5-14.5); White Blood Count 8.8 K/mcL (4.3-11.1)
[2019-03-31] MEDS: Heparin 25,000 UNIT/250 ML D5W 25,000 UNIT/250 ML IV.SOLN IVC SCH (01:32)
[2019-03-31 01:37] LABS: Prothrombin Time 11.8 Seconds (9.4-12.1)
[2019-03-31 01:40] LABS: Heparin anti-factor XA UFH 0.01 IU/mL (0.30-0.70)
[2019-03-31 01:55] LABS: Calcium 8.8 mg/dL (8.6-10.3); Chol/HDL Ratio 4.8 (0-4.9); Magnesium 1.7 mg/dL (1.6-2.6); Potassium 3.9 mEq/L (3.5-5.1)
[2019-03-31 02:07] LABS: Thyroid Stimulating Hormone 1.906 mcIU/mL (0.340-5.600)
[2019-03-31] MEDS ORDERED: Regadenoson 0.4 MG/5 ML SYRINGE IVP ONE (07:22)
[2019-03-31] MEDS ORDERED: Aspirin Enteric Coated 81 MG Tablet PO SCH (09:00)
[2019-03-31] MEDS: Aspirin Enteric Coated 325 MG Tablet PO SCH (10:21)
[2019-03-31] MEDS: Metoprolol XL (24 HR) Succ 50 MG TAB.ER.24H PO SCH (10:21)
[2019-04-01] MEDS: Heparin 25,000 UNIT/250 ML D5W 25,000 UNIT/250 ML IV.SOLN IVC SCH (00:32)
[2019-04-01 03:20] LABS: Hematocrit 44.3 % (35.3-44.9); Mean Corpuscular HGB Conc 33.9 g/dL (31.6-35.5); Mean Corpuscular Hemoglobin 29.6 pg (28.0-33.3); Mean Corpuscular Volume 87.5 fL (83.0-100.0); Mean Platelet Volume 9.7 fL (9.4-12.4); Platelet Count 274 K/mcL (140-400); Red Blood Count 5.06 M/mcL (3.82-4.97); Red Cell Distribution Width 14.5 % (11.5-14.5); White Blood Count 10.4 K/mcL (4.3-11.1)
[2019-04-01 03:40] LABS: Calcium 9.3 mg/dL (8.6-10.3); Potassium 4.3 mEq/L (3.5-5.1)
[2019-04-01] MEDS: 0.9 % Sodium Chloride 1,000 ML IVC SCH ×2 (06:42→22:52)
[2019-04-01] MEDS ORDERED: ISOVUE-370 200 ML INFUS..BTL ONE (07:15)
[2019-04-01] MEDS ORDERED: Nitroglycerin 1,000 MCG/10 ML VIAL IV ONE (07:15)
[2019-04-01] MEDS ORDERED: 0.9 % Sodium Chloride 2,000 ML ONE (07:15)
[2019-04-01] MEDS ORDERED: *HR* Heparin 10,000 UNIT/10 ML VIAL ONE (07:15)
[2019-04-01] MEDS ORDERED: Heparin 1,000 UNITS/500 mL 500 ML ONE (07:15)
[2019-04-01] MEDS ORDERED: *HR* FentaNYL (PF) 100 MCG/2 ML VIAL ONE (09:55)
[2019-04-01] MEDS ORDERED: *HR* Midazolam HCl 2 MG/2 ML VIAL ONE (09:55)
[2019-04-01] MEDS ORDERED: Tirofiban 12.5 MG/250ML 12.5 MG/250 ML BAG ONE (10:24)
[2019-04-01] MEDS ORDERED: Tirofiban 12.5 MG/250ML 12.5 MG/250 ML BAG IVC SCH ×2 (10:45→11:15)
[2019-04-01] MEDS: Aspirin Enteric Coated 325 MG Tablet PO SCH (13:59)
[2019-04-01] MEDS: Metoprolol XL (24 HR) Succ 50 MG TAB.ER.24H PO SCH (13:59)
[2019-04-02 06:25] LABS: BUN/Creatinine Ratio 15 (6-26); Blood Urea Nitrogen 16 mg/dL (8-23); Calcium 8.4 mg/dL (8.6-10.3); Carbon Dioxide 25 mEq/L (23-29); Chloride 103 mEq/L (98-107); Glucose 117 mg/dL (70-105); Osmolality,Calculated 288 (280-300); Potassium 4.1 mEq/L (3.5-5.1); Sodium 138 mEq/L (136-145); eGFR For African Americans > 60 (> 60); eGFR For Non-African Americans 51 (> 60)
[2019-04-02] MEDS: Heparin 25,000 UNIT/250 ML D5W 25,000 UNIT/250 ML IV.SOLN IVC SCH (07:20)
[2019-04-02 08:04] VITALS: BP 127/66
[2019-04-02 08:04] LABS: Hematocrit 39.6 % (35.3-44.9); Hemoglobin 13.3 g/dL (11.5-15.4); Mean Corpuscular HGB Conc 33.6 g/dL (31.6-35.5); Mean Corpuscular Hemoglobin 29.5 pg (28.0-33.3); Mean Corpuscular Volume 87.8 fL (83.0-100.0); Mean Platelet Volume 9.7 fL (9.4-12.4); Platelet Count 219 K/mcL (140-400); Red Blood Count 4.51 M/mcL (3.82-4.97); Red Cell Distribution Width 14.6 % (11.5-14.5); White Blood Count 7.5 K/mcL (4.3-11.1)
[2019-04-02] MEDS ORDERED: Aspirin Enteric Coated 81 MG Tablet PO SCH (09:00)
[2019-04-02] MEDS ORDERED: Apixaban 5 MG TABLET PO SCH (21:00)
== END 2019-04-02 12:32 | disposition home or self-care (01) | DRG 247 ==
LOC: 3BNU 18:05 → EMEROOARM 18:05 → 3BNU 21:22
PROVIDERS: ADMIT Internal Medicine; ATTEND Internal Medicine